=== PATIENT | male | born 1965 | race Caucasian/White ===

== ENCOUNTER 2017-11-24 16:49 | Emergency (ER) | payer OTHER ==
[2017-11-24 17:00] VITALS: BP 152/89
--- NOTE | 2017-11-24 17:58 | EDM.PDOC ---
ED HPI GENERAL MEDICAL PROBLEM - General Chief Complaint: Laceration Stated Complaint: FINGER INJURY AT WORK Time Seen by Provider: 11/24/17 17:39 Source of Information: Reports: Patient History Limitations: Reports: No Limitations - History of Present Illness INITIAL COMMENTS - FREE TEXT/NARRATIVE: 52-year-old male presents from occupational health for evaluation and treatment of an injury to the right middle finger. Reportedly occurred at work. Patient states that he was helping move an I beam and when his finger got caught underneath it. He has a laceration to the right hand distal finger which goes through the nail. The tip of the finger is dusky. He reporting pain to this area. No treatment prior to arrival here. He reports numbness and tingling but states he can feel light touch. Patient believes his tetanus has been within the last 10 years. Onset: Today, Sudden Location: Reports: Upper Extremity, Right 3-Middle finger Pain Score (Numeric/FACES): 3 - Related Data Allergies Allergy/AdvReac Type Severity Reaction Status Date / Time lactose Allergy Abdominal Verified 11/24/17 17:00 Cramps Penicillins Allergy Itching Verified 11/24/17 17:00 Home Meds: Home Meds Ibuprofen 2 - 3 tab PO ASDIRECTED PRN 02/22/15 [History] Acetaminophen with Codeine [Tylenol with Codeine #3 Tablet] 1 each PO Q4HR PRN # 20 tablet 11/24/17 [Rx] Cephalexin [Keflex] 500 mg PO Q8H #21 cap 11/24/17 [Rx] Past Medical History Other Gastrointestinal History: occasional heartburn Other Genitourinary History: hx kidney stone Other Musculoskeletal History: hx bone graft to rt wrist x2 - Past Surgical History Musculoskeletal Surgical History: Reports: Other (See Below) Other Musculoskeletal Surgeries/Procedures:: rotator cuff surgery Social & Family History - Tobacco Use Smoking Status *Q: Never Smoker Second Hand Smoke Exposure: No - Caffeine Use Caffeine Use: Reports: Coffee - Recreational Drug Use Recreational Drug Use: No ED ROS GENERAL - Review of Systems Review Of Systems: ROS reveals no pertinent complaints other than HPI. ED EXAM, SKIN/RASH Exam: See Below Exam Limited By: No Limitations General Appearance: Alert, WD/WN, No Apparent Distress Respiratory/Chest: No Respiratory Distress Cardiovascular: Normal Peripheral Pulses, Regular Rate, Rhythm Peripheral Pulses: 2+: Radial (L), Radial (R) Extremities: Normal Capillary Refill (to all fingers except the right 3rd; no capillary refill to the right 3rd finger), Other (3cm and 1.5cm lacerations to the right 3rd finger distal end; 3cm laceration is circumferential. Distal tip is dusky. Normal ROM to the right hand 3rd finger) Neurological: Alert, Oriented, Normal Cognition Psychiatric: Normal Affect, Normal Mood Skin: Warm, Dry, Normal Color ED SKIN PROCEDURES - Laceration/Wound Repair Right Distal Finger Lac/Wound length In cm: 3 Appearance: Subcutaneous, Linear, Mildly Contaminated Distal NVT: No Tendon Injury, Other (little sensation to the distal tip) Anesthetic Type: Digital Local Anesthesia - Lidocaine (Xylocaine): 1% Plain Local Anesthetic Volume: Other (7) Skin Prep: Chlorhexidine (Hibiciens), Saline, Sterile Drape Saline Irrigation (cc's): 200 Exploration/Debridement/Repair: Wound Explored, Foreign Material Removed (spec of dirt) Closed with: Sutures Suture Size: other (5-0) # of Sutures: 15 Suture Type: Nylon, Interrupted, Simple Suture Size: other (5-0) # of Sutures: 5 Repaired with: Vicryl Sterile Dressing Applied: Nurse Tetanus Status Addressed: Yes Complications: No Right Lateral Distal Finger Lac/Wound length In cm: 1.5 Appearance: Subcutaneous, Linear, Clean Distal NVT: No Tendon Injury, Other (no sensation to the distal finger tip) Local Anesthesia - Lidocaine (Xylocaine): 1% Plain Local Anesthetic Volume: 2cc Skin Prep: Saline, Sterile Drape Exploration/Debridement/Repair: Wound Explored Closed with: Sutures Suture Size: other (5-0) # of Sutures: 5 Suture Type: Nylon, Interrupted, Simple Sterile Dressing Applied: Nurse Tetanus Status Addressed: Yes Complications: No Course - Vital Signs Last Recorded V/S: Last Vital Signs Temp 99.1 F 11/24/17 16:53 Pulse 71 11/24/17 16:53 Resp 18 11/24/17 16:53 BP 152/89 H 11/24/17 16:53 Pulse Ox 99 11/24/17 16:53 - Orders/Labs/Meds Orders: Active Orders 24 hr Category Date Time Status Fingers Third Digit Rt F7 [CR] Stat Exams 11/24/17 17:10 Taken Meds: Medications Discontinued Medications Generic Name Dose Route Start Last Admin Trade Name Freq PRN Reason Stop Dose Admin Lidocaine HCl 50 ml 11/24/17 18:07 11/24/17 18:25 Xylocaine 1% INJECT 11/24/17 18:08 50 ml ONETIME ONE Administration - Radiology Interpretation Free Text/Narrative:: xray of the finger shows soft tissue injury. No acute fractures or dislocations. Reviewed by myself and Dr. Dunne. - Re-Assessments/Exams Free Text/Narrative Re-Assessment/Exam: 11/24/17 19:34 Dr. Britt has seen the patient and agrees with xray and treatment plan. 25 sutures in total were placed, 5 subcutaneous, 15 to the laceration else approximate 3 cm long and 5 to the 1.5 cm long laceration. A digital block was performed. Patient had adequate anesthesia. 2 mils of anesthesia was needed for the second wound repair as the lidocaine did begin to wear off. He declined narcotic pain medication throughout his ER stay. I will put him on antibiotics and have him follow-up with occupational health this week to recheck on the finger. Patient was warned that time will tell if he will require further intervention for his wound today. Discharge instructions as documented. Departure - Departure Time of Disposition: 19:34 Disposition: Home, Self-Care 01 Condition: Fair Clinical Impression: Laceration - Discharge Information Prescriptions: Acetaminophen with Codeine [Tylenol with Codeine #3 Tablet] 1 each PO Q4HR PRN # 20 tablet PRN Reason: Pain Cephalexin [Keflex] 500 mg PO Q8H #21 cap Instructions: Laceration Care, Adult Referrals: PCP,Not In Area [Primary Care Provider] - Satnam Dunne MD [Physician] - Forms: ED Department Discharge, ED Return to Work/School Form Additional Instructions: Wash with gentle soap and water twice a day. Do not soak the wound. Keep the wound covered and in the aluminiform splint. Keflex 1 tab 3 times a day for 7 days. Recommend taking this medication with food. Antibiotic can be hard on your stomach. Recommend yogurt or probiotic to help reduce side effects of upset stomach, nausea and diarrhea. may take [id number] Tylenol or Motrin seen for pain relief. For pain not relieved by Tylenol or Motrin you may take Tylenol No. 3 one or 2 tabs every 4- 6 hours. Codeine is habit-forming, take as few these as needed to control your pain. Do not drive or operate machinery within 8 hours of taking Tylenol 3. Do not take more than 4 g of Tylenol from all sources in 1 day. Do not take more than 3200 mg of ibuprofen from all sources in 1 day. Follow-up with occupational he on or Friday this week for a recheck. Recommend Dr. Dunne at the [facility]. Call [phone] to schedule with him. The sutures will likely need to come out in a [address] Dunne at occupational health can do this for you. Monitor for signs of infection such as increased swelling, pus or redness. Presents to clinic or the ER . Please return to the ER for symptoms change or worsen. - My Orders Last 24 Hours: My Active Orders 11/24/17 17:10 Fingers Third Digit Rt F7 [CR] Stat - Assessment/Plan Last 24 Hours: My Active Orders 11/24/17 17:10 Fingers Third Digit Rt F7 [CR] Stat
[2017-11-24] MEDS: Lidocaine 1% 50 ML MDV INJECT ONE (18:25)
--- NOTE | 2017-11-25 08:46 | CR ---
Right third finger: Four views centered to the right third finger were obtained. Comparison: No previous study. Soft tissue injury is seen distally. No fracture, dislocation or other bony abnormality is seen. Impression: 1. Distal soft tissue injury. 2. No acute bony abnormality is identified on right third finger study. Diagnostic code #2
== END 2017-11-24 19:57 | disposition home or self-care (01) ==
LOC: JD.ED 16:49
DX: S61.222A Laceration with foreign body of right middle finger without damage to nail, initial encounter (principal); Z91.011 Allergy to milk products; Z88.0 Allergy status to penicillin; W23.1XXA Caught, crushed, jammed, or pinched between stationary objects, initial encounter; Y99.0 Civilian activity done for income or pay
CPT/HCPCS: 12002; 13132; 73140-26-F7; 73140-F7; 99283-25